=== PATIENT | female | born 1965 | race Caucasian/White ===

== ENCOUNTER 2017-01-25 11:26 | Day surgery (SDC) | payer OTHER ==
[~2017-01-25] VITALS: Ht 165.1 cm; Wt 90.7 kg
[2017-01-25] MEDS ORDERED: LIDOCAINE 2% INJ 100 MG/5 ML SDV (FOR ANES.) As Ordered ONE (12:04)
[2017-01-25] MEDS ORDERED: PROPOFOL 200 MG/20 ML VIAL As Ordered ONE (12:04)
[2017-01-25] MEDS ORDERED: NS 1,000 ML IV ONE (13:00)
--- NOTE | 2017-01-25 13:35 | ROOR ---
Patient Name: Tiffanie Ortiz Procedure Date: 01/25/2017 12:59 PM Date of : 1965 Age: 51 Room: [facility] Gender: Female Note Status: Finalized Procedure: Colonoscopy Indications: Screening for colorectal malignant neoplasm Providers: Sanya ARITA MD Referring MD: Antoni THOMPSON MD Requesting Provider: Medicines: Monitored Anesthesia Care Complications: No immediate complications. Procedure: Pre-Anesthesia Assessment: - The heart rate, respiratory rate, oxygen saturations, blood pressure, adequacy of pulmonary ventilation, and response to care were monitored throughout the procedure. The Colonoscope was introduced through the anus and advanced to the cecum, identified by appendiceal orifice and ileocecal valve. The colonoscopy was performed without difficulty. The patient tolerated the procedure well. The quality of the bowel preparation was good. Findings: The perianal and digital rectal examinations were normal. (Exam: Complete, Prep: Good or Excellent.) A 4 mm polyp was found in the proximal ascending colon. The polyp was sessile. The polyp was removed with a cold snare. Resection and retrieval were complete. Two semi-pedunculated polyps were found in the proximal sigmoid colon and at 50 cm proximal to the anus. The polyps were 4 to 10 mm in size. These polyps were removed with a hot snare. Resection and retrieval were complete. Area was successfully injected with 3 mL Spot (carbon black) for tattooing. To prevent bleeding after the polypectomy, two hemostatic clips were successfully placed (MR conditional). There was no bleeding at the end of the procedure. Two sessile polyps were found in the mid sigmoid colon. The polyps were 4 to 5 mm in size. These polyps were removed with a cold snare. Resection and retrieval were complete. Mild diverticulosis and small internal hemorrhoids. The exam was otherwise without abnormality on direct and retroflexion views. Impression: - (Exam: Complete, Prep: Good or Excellent.) - One 4 mm polyp in the proximal ascending colon, removed with a cold snare. Resected and retrieved. - Two 4 to 10 mm polyps in the proximal sigmoid colon and at 50 cm proximal to the anus, removed with a hot snare. Resected and retrieved. Injected. Clips (MR conditional) were placed. - Two 4 to 5 mm polyps in the mid sigmoid colon, removed with a cold snare. Resected and retrieved. - Mild diverticulosis and small internal hemorrhoids. - The examination was otherwise normal on direct and retroflexion views. Recommendation: - Telephone endoscopist for pathology results in 2 weeks. - If the pathology report reveals adenomatous tissue, then repeat the colonoscopy for surveillance in 3 years. Sanya Arita MD Sanya ARITA MD 01/25/2017 1:35:32 PM This report has been signed electronically. Number of Addenda: 0 Note Initiated On: 01/25/2017 12:59 PM Estimated Blood Loss: Estimated blood loss: none.
[2017-01-25 13:55] VITALS: BP 151/88
== END 2017-01-25 13:56 | disposition home or self-care (01) ==
LOC: M OPP 11:26
PROVIDERS: ATTEND Internal Medicine Gastroenterology
DX: Z12.11 Encounter for screening for malignant neoplasm of colon (principal); D12.2 Benign neoplasm of ascending colon; D12.5 Benign neoplasm of sigmoid colon; K57.30 Diverticulosis of large intestine without perforation or abscess without bleeding; K64.8 Other hemorrhoids; I10 Essential (primary) hypertension; K21.9 Gastro-esophageal reflux disease without esophagitis; E04.9 Nontoxic goiter, unspecified; Z78.0 Asymptomatic menopausal state

== ENCOUNTER → 2017-04-03 | Outpatient (REF) | payer OTHER ==
[2017-04-03 15:30] LABS: ALBUMIN/GLOBULIN RATIO 1.03 (1.00-1.93); ALKALINE PHOSPHATASE 76 U/L (45-117); ALT/SGPT 39 U/L (12-78); ANION GAP 9 MEQ/L (8-16); AST/SGOT 30 U/L (7-37); BILIRUBIN,TOTAL 0.5 MG/DL (0.2-1.0); BLOOD UREA NITROGEN 19 MG/DL (7-18); CARBON DIOXIDE LEVEL 25 MEQ/L (21-32); CHLORIDE LEVEL 107 MEQ/L (98-107); CHOLESTEROL LEVEL 223 MG/DL (<200); CREATININE FOR GFR 0.89 MG/DL (0.55-1.30); GLOMERULAR FILTRATION RATE > 60.0 (>51); GLUCOSE, FASTING 86 MG/DL (70-100); HDL CHOLESTEROL 50 MG/DL (>40); LDL CHOLESTEROL 149.6 MG/DL (<100); NON-HDL-C 173 MG/DL; SODIUM LEVEL 141 MEQ/L (136-145); TOTAL PROTEIN 7.9 GM/DL (6.4-8.2); TRIGLYCERIDES LEVEL 117 MG/DL (<150)
== END ==
LOC: M LAB REF 13:11
DX: R03.0 Elevated blood-pressure reading, without diagnosis of hypertension (principal)
CPT/HCPCS: 84443

== ENCOUNTER → 2017-05-16 | Outpatient (REF) | payer OTHER, MEDICAID ==
[2017-05-21 14:18] LABS: HPV HYBRID CAPTURE II Negative (Negative)
== END ==
LOC: M LAB REF 17:49
DX: Z01.419 Encounter for gynecological examination (general) (routine) without abnormal findings (principal); Z11.51 Encounter for screening for human papillomavirus (HPV)
CPT/HCPCS: 88142

== ENCOUNTER → 2017-06-10 | Outpatient (CLI) | payer OTHER, MEDICAID | LOC: M RAD 11:14 | DX: Z12.31 Encounter for screening mammogram for malignant neoplasm of breast (principal); Z78.0 Asymptomatic menopausal state | CPT/HCPCS: 77067 ==

== ENCOUNTER → 2019-03-13 | Outpatient (REF) | payer OTHER ==
[2019-03-13 13:29] LABS: BASO % 0.5 % (0.0-1.0); EOS % 0.5 % (0.0-3.0); HEMATOCRIT 42.4 % (36.0-47.0); HEMOGLOBIN 13.3 g/dl (12.0-15.5); LYMPH # 1.4 10^3/uL (1.5-5.0); LYMPH % 35.7 % (24.0-44.0); MEAN CORPUSCULAR HEMOGLOBIN 30.4 pg (27.0-33.0); MEAN CORPUSCULAR HGB CONC 31.4 g/dl (32.0-36.5); MONO # 0.3 10^3/uL (0.0-0.8); MONO % 7.5 % (0.0-5.0); NEUTROPHILS # 2.2 10^3/uL (1.5-8.5); NEUTROPHILS % 55.5 % (36.0-66.0); PLATELET COUNT, AUTOMATED 140 10^3/uL (150-450); RED BLOOD COUNT 4.37 10^6/uL (4.00-5.40)
[2019-03-13 14:01] LABS: ALBUMIN 4.1 GM/DL (3.2-5.2); ALT/SGPT 39 U/L (12-78); BILIRUBIN,TOTAL 0.3 MG/DL (0.2-1.0); BLOOD UREA NITROGEN 15 MG/DL (7-18); CALCIUM LEVEL 9.4 MG/DL (8.5-10.1); CARBON DIOXIDE LEVEL 27 MEQ/L (21-32); CHLORIDE LEVEL 107 MEQ/L (98-107); CHOLESTEROL LEVEL 235 MG/DL (<200); CHOLESTEROL RISK RATIO 4.795 (<5); CREATININE FOR GFR 0.88 MG/DL (0.55-1.30); FREE T4 1.09 NG/DL (0.76-1.46); GLOMERULAR FILTRATION RATE > 60.0 (>51); GLUCOSE, FASTING 87 MG/DL (70-100); HDL CHOLESTEROL 49 MG/DL (>40); LDL CHOLESTEROL 163 MG/DL (<100); NON-HDL-C 186 MG/DL; POTASSIUM SERUM 4.1 MEQ/L (3.5-5.1); SODIUM LEVEL 141 MEQ/L (136-145); TOTAL PROTEIN 7.9 GM/DL (6.4-8.2); TRIGLYCERIDES LEVEL 114 MG/DL (<150)
[2019-03-13 14:02] LABS: TOTAL 25(OH) VITAMIN D 26.4 NG/ML (30.0-100.0)
== END ==
LOC: M LAB REF 12:15
PROVIDERS: ATTEND Physician Assistant
DX: Z00.00 Encounter for general adult medical examination without abnormal findings (principal); Z68.37 Body mass index [BMI] 37.0-37.9, adult; E66.09 Other obesity due to excess calories; E78.00 Pure hypercholesterolemia, unspecified

== ENCOUNTER → 2019-04-09 | Outpatient (CLI) | payer MEDICAID, OTHER ==
--- NOTE | 2019-04-09 15:38 | REPMRS ---
Patient History The patient states she has not had a clinical breast exam in over a year. No known family history of cancer. Digital Woman Screen Mammo: April 09, 2019 - Exam #: [id number] Bilateral CC and MLO view(s) were taken. Technologist: Sendy Patiño, Technologist Prior study comparison: June 10, 2017, bilateral digital mammo screening bilat, performed at [facility]. FINDINGS: There are scattered fibroglandular densities. There has been no change in the appearance of the mammogram from the prior studies. There is a mild amount of scattered fibroglandular density which is fairly symmetric. There is no interval development of dominant mass, architectural distortion, or grouped microcalcification suggestive of malignancy. 3-D tomosynthesis shows no additional findings. Assessment: BI-RADS/ACR category 1 mammogram. Negative Mammogram. Recommendation Routine screening mammogram of both breasts in 1 year (for women over age 40). This patient's Lifetime Breast Cancer Risk is estimated at 8.3 %. This mammogram was interpreted with the aid of an FDA-approved computer-aided dectection system. Electronically Signed By: Du Green MD 04/09/19 [id number]
== END ==
LOC: M WHC 14:42
PROVIDERS: ATTEND Physician Assistant
DX: Z12.31 Encounter for screening mammogram for malignant neoplasm of breast (principal)

== ENCOUNTER → 2020-04-07 | Outpatient (CLI) | payer MEDICAID | LOC: M LABSMTC 10:07 | PROVIDERS: ATTEND Anesthesiology | DX: Z01.812 Encounter for preprocedural laboratory examination (principal); Z20.822 Contact with and (suspected) exposure to COVID-19 ==

== ENCOUNTER 2020-04-12 12:48 | Day surgery (SDC) | payer OTHER ==
[~2020-04-12] VITALS: Ht 167.6 cm; Wt 95.3 kg
--- OUTSIDE RECORDS SUMMARY | 2020-04-12 12:53 | CCD | Continuity of Care Document ---
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 AUTM [phone] Problems Description No Active Problems Social History Type Date Description Comments Sex Unknown ETOH Use Denies alcohol use Tobacco Use Start: Unknown Non Smoker Allergies, Adverse Reactions, Alerts Description No Known Drug Allergies Medications Active Medications SIG Qnty Indications Ordering Provide r Date Miralax 17GM/Scoop Powder use as instructed by doctor for bowel prep 510gm Z12.11 Sanya Arita MD 01/29/2020 Milk Of Magnesia 1200mg/15ML Suspe nsion take 45 milliliters by mouth as directed on colonoscopy prep sheet. Z12.11 Sanya Arita MD 01/29/2020 History Medications No Active Medications Unknown 12/2019 - 01/29/2020 Immunizations Description No Information Available Vital Signs Date Vital Result Comment 01/29/2020 11:21am BP Systolic 144 mmHg BP Diastolic 84 mmHg Height 65 inches 5'5" Weight 219.00 lb BMI (Body Mass Index) 36.4 kg/m2 [place] Body Weight 125 lb Weight 99.338 kg BSA (Body Surface Area) 2.06 m2 12/10/2016 12:56pm BP Systolic 148 mmHg BP Diastolic 88 mmHg Height 65 inches 5'5" Weight 222.00 lb BMI (Body Mass Index) 36.9 kg/m2 [place] Body Weight 125 lb Weight 100.699 kg BSA (Body Surface Area) 2.07 m2 Results Description No Information Available Procedures Description No Information Available Medical Devices Description No Information Available Encounters Description No Information Available Assessments Date Code Description Provider 01/29/2020 Z12.11 Encounter for screening for libyb gnant neoplasm of colon Jana Dagoberto MAITE Malcolm 01/29/2020 Z86.010 Personal history of colonic poly ps MAITE Colon Plan of Treatment 01/29/2020 - Jana Dagoberto MAITE Malcolm* Z12.11 Encounter for screening for malignant neoplasm of colon * Z86.010 Personal history of colonic polyps * * New Medication:* Miralax 17 GM/Scoop * Milk Of Magnesia 1200 mg/15ML * New Orders:* Colonoscopy, Ordered: 01/29/20 * Comments:* Will arrange for colonoscopy. Reviewed risks and benefits of the procedure, as well as other options, with the patient. Bowel prep procedure was discussed with patient, as well as risks and side effects associated with the bowel prep. Patient verbalized understanding of all of the above and is in agreement to proceed. Patient will seek medical attention for any acute changes. Will monitor. * Follow up:* As scheduled, sooner if needed. Functional Status Description No Information Available Mental Status Description No Information Available Referrals Description No Information Available
--- OUTSIDE RECORDS SUMMARY | 2020-04-12 12:53 | CCD ---
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 Name Role Phone Shelley Milan MD Unavailable Unavailable Shelley Milan MD Unavailable Unavailable Shelley Milan MD Unavailable Unavailable Shelley Milan MD Unavailable Unavailable Shelley Milan MD Unavailable Unavailable Shelley Milan MD Unavailable Unavailable Shelley Milan MD Unavailable Unavailable Shelley Milan MD Unavailable Unavailable Shelley Milan MD Unavailable Unavailable Shelley Milan MD Unavailable Unavailable Shelley Milan MD Unavailable Unavailable Shelley Milan MD Unavailable Unavailable Shelley Milan MD Unavailable Unavailable Shelley Milan MD Unavailable Unavailable Shelley Milan MD Unavailable Unavailable Shelley Milan MD Unavailable Unavailable Shelley Milan MD Unavailable Unavailable Shelley Milan MD Unavailable Unavailable Shelley Milan MD Unavailable Unavailable Shelley Milan MD Unavailable Unavailable Shelley Milan MD Unavailable Unavailable Shelley Milan MD Unavailable Unavailable Shelley Milan MD Unavailable Unavailable Shelley Milan MD Unavailable Unavailable Shelley Milan MD Unavailable Unavailable Shelley Milan MD Unavailable Unavailable Shelley Milan MD Unavailable Unavailable Shelley Milan MD Unavailable Unavailable Shelley Milan MD Unavailable Unavailable Shelley Milan MD Unavailable Unavailable Shelley Milan MD Unavailable Unavailable Shelley Milan MD Unavailable Unavailable Shelley Milan MD Unavailable Unavailable Shelley Milan MD Unavailable Unavailable Shelley Milan MD Unavailable Unavailable Shelley Milan MD Unavailable Unavailable Shelley Milan MD Unavailable Unavailable Shelley Milan MD Unavailable Unavailable Shelley Milan MD Unavailable Unavailable Shelley Milan MD Unavailable Unavailable Shelley Milan MD Unavailable Unavailable Shelley Milan MD Unavailable Unavailable Shelley Milan MD Unavailable Unavailable Shelley Milan MD Unavailable Unavailable Shelley Milan MD Unavailable Unavailable Milan, Shelley Corrales MD Unavailable Unavailable Milan, D Antoni MD Unavailable Unavailable Milan, D Antoni MD Unavailable Unavailable Milan, D Antoni MD Unavailable Unavailable Milan, D Antoni MD Unavailable Unavailable Milan, D Antoni MD Unavailable Unavailable Milan, D Antoni MD Unavailable Unavailable Milan, D Antoni MD Unavailable Unavailable Milan, D Antoni MD Unavailable Unavailable Milan, D Antoni MD Unavailable Unavailable Milan, D Antoni MD Unavailable Unavailable Milan, D Antoni MD Unavailable Unavailable Milan, D Antoni MD Unavailable Unavailable Milan, D Antoni MD Unavailable Unavailable Milan, D Antoni MD Unavailable Unavailable Milan, D Antoni MD Unavailable Unavailable Milan, D Antoni MD Unavailable Unavailable Milan, D Antoni MD Unavailable Unavailable Milan, D Antoni MD Unavailable Unavailable Milan, D Antoni MD Unavailable Unavailable Milan, D Antoni MD Unavailable Unavailable Milan, D Antoni MD Unavailable Unavailable Milan, D Antoni MD Unavailable Unavailable Milan, D Antoni MD Unavailable Unavailable Milan, D Antoni MD Unavailable Unavailable Milan, D Antoni MD Unavailable Unavailable Milan, D Antoni MD Unavailable Unavailable Milan, D Antoni MD Unavailable Unavailable Milan, D Antoni MD Unavailable Unavailable Milan, D Antoni MD Unavailable Unavailable Milan, D Antoni MD Unavailable Unavailable Milan, D Antoni MD Unavailable Unavailable Milan, D Antoni MD Unavailable Unavailable Milan, D Antoni MD Unavailable Unavailable Milan, D Antoni MD Unavailable Unavailable Milan, D Antoni MD Unavailable Unavailable Milan, D Antoni MD Unavailable Unavailable Milan, D Antoni MD Unavailable Unavailable Milan, D Antoni MD Unavailable Unavailable Milan, D Antoni MD Unavailable Unavailable Milan, D Antoni MD Unavailable Unavailable Milan, D Antoni MD Unavailable Unavailable Milan, D Antoni MD Unavailable Unavailable Milan, D Antoni MD Unavailable Unavailable Re-disclosure Warning The records that you are about to access may contain information from federally-assisted alcohol or drug abuse programs. If such information is present, then the following federally mandated warning applies: This information has been disclosed to you from records protected by federal confidentiality rules (42 CFR part 2). The federal rules prohibit you from making any further disclosure of this information unless further disclosure is expressly permitted by the written consent of the person to whom it pertains or as otherwise permitted by 42 CFR part 2. A general authorization for the release of medical or other information is NOT sufficient for this purpose. The Federal rules restrict any use of the information to criminally investigate or prosecute any alcohol or drug abuse patient.The records that you are about to access may contain highly sensitive health information, the redisclosure of which is protected by Article 27-F of the [place] State Public Health law. If you continue you may have access to information: Regarding HIV / AIDS; Provided by facilities licensed or operated by the [facility] Office of Mental Health; or Provided by the [facility] Office for People With Developmental Disabilities. If such information is present, then the following [facility] mandated warning applies: This information has been disclosed to you from confidential records which are protected by state law. State law prohibits you from making any further disclosure of this information without the specific written consent of the person to whom it pertains, or as otherwise permitted by law. Any unauthorized further disclosure in violation of state law may result in a fine or long term sentence or both. A general authorization for the release of medical or other information is NOT sufficient authorization for further disc losure. Family History Family Member Name Family Member Gender Family Member Status Date o f Status Description Data Source(s) Unknown Unknown Problem [facility] ([facility], ) Encounters Encounter Providers Location Date Indications Data Source(s ) Outpatient 06/08/2019 02:21:00 PM EDT [facility] Radiology Imaging Outpatient 04/16/2019 07:27:00 PM [facility] Imaging Outpatient Attender: Antoni Milan MD 04/15/2019 01:48:02 PM [facility] Outpatient Attender: Antoni Milan MD FP 04/03/2019 08:01:57 PM [facility] Outpatient Attender: Antoni Milan MD FP 03/26/2019 10:14:45 AM [facility] Outpatient Attender: Antoni Milan MD FP 03/20/2019 09:13:00 AM [facility] Outpatient Attender: Antoni Milan MD FP 03/18/2019 03:58:01 PM [facility] Outpatient Attender: Antoni Milan MD FP 03/16/2019 08:35:02 AM [facility] Outpatient Attender: Antoni Milan MD FP 03/16/2019 08:33:04 AM [facility] Outpatient Attender: Antoni Milan MD FP 03/16/2019 08:32:02 AM [facility] Outpatient Attender: Antoni Milan MD FP 03/16/2019 08:32:02 AM [facility] Outpatient Attender: Antoni Milan MD FP 03/16/2019 08:14:01 AM [facility] Outpatient Attender: Antoni Milan MD FP 03/13/2019 11:34:01 AM [facility] Outpatient Attender: Antoni Milan MD FP 03/13/2019 11:33:01 AM [facility] Outpatient Attender: Antoni Milan MD FP 03/13/2019 11:32:00 AM [facility] Outpatient Attender: Antoni Milan MD FP 03/13/2019 09:36:26 AM [facility] Outpatient Attender: Antoni Milan MD FP 03/13/2019 09:29:44 AM [facility] Outpatient Attender: Antoni Milan MD FP 03/11/2019 01:12:00 PM [facility] Outpatient Attender: Antoni Milan MD FP 03/11/2019 01:11:01 PM [facility] Outpatient Attender: Antoni Milan MD FP 02/23/2019 10:09:01 AM [facility] Outpatient Attender: Antoni Milan MD FP 02/19/2019 10:04:00 AM [facility] Outpatient Attender: Antoni Milan MD 02/11/2019 09:01:07 PM [facility] Medications Medication Brand Name Start Date Product Form Dose Route Admi nistrative Instructions Pharmacy Instructions Status Indications Reaction Description Data Source(s) Magnesium Hydroxide 80 MG/ML Oral Suspension Milk Of Magnesi a 01/29/2020 12:00:00 AM EST ORAL active M [facility] ([facility], ) POLYETHYLENE GLYCOL 3350 142 MG/ML Oral Solution [Miralax] M iralax 01/29/2020 12:00:00 AM EST active [facility] ([facility], ) No Active Medications 01/29/2020 12:00:00 AM EST completed [facility] ([facility], ) Insurance Providers Payer name Policy type / Coverage type Policy ID Covered libertarian ID Covered libertarian's relationship to atkins Policy Atkins Plan Information [facility] [facility] [id number] SP [id number] EMEDNY [id number] SP [id number] MEDICAID M [id number] S [id number] MEDICAID [id number] SP [id number] [facility] O [id number] S [id number] [facility] [id number] SP [id number] Medicaid P [id number] S [id number] [facility] Care [facility] P [id number] S [id number] Medicaid S [id number] S [id number] [facility] P [id number] S [id number] Managed Care - [facility] P [id number] S [id number] Medicaid S [id number] S [id number] [facility] Health Maintenance Organization (HMO) [id number] Self [id number] Problems, Conditions, and Diagnoses Code Display Name Description Problem Type Effective Dates Data Source(s) V85.37 BMI 37.0-37.9 BMI 37.0-37.9 03/13/2019 08:52:09 AM EST [facility] 278.00 Obesity Obesity 03/13/2019 08:52:09 AM ES T [facility] [id number] Pure hypercholesterolemia, unspecified P ure hypercholesterolemia, unspecified 03/13/2019 08:52:09 AM EST [facility] V70.0 Encounter for general adult medical exam ination without abnormal findings Encounter for general adult medical examination without abnormal findings 03/13/2019 08:52:09 AM [facility] Results ID Date Data Source [id number] 04/07/2020 11:00:00 AM EST [facility] Name Value Range Interpretation Code Description Data Jing rce(s) Supporting Document(s) SARS coronavirus 2 RNA Not Detected [facility] [place] This lab was ordered by [facility] and reported by [facility]. ID Date Data Source [id number] 03/13/2019 09:05:00 AM EST [facility] Name Value Range Interpretation Code Description Data Jing rce(s) Supporting Document(s) HCT 42.4 % 36.0-47.0 [facility] HGB 13.3 g/dL 12.0-15.5 [facility] MCH 31.4 G/DL pg 32.0-36.5 [facility] MCHC 30.4 PG % 27.0-33.0 [facility] PLATELETS 140 10 10*3/mm3 150-450 L [facility] RBC 4.37 10 10*6/mm3 4.00-5.40 [facility] RDW 13.2 % 11.5-14.5 [facility] WBC TOTAL 4.0 4.0-10.0 [facility] ID Date Data Source [id number] 03/13/2019 08:22:29 AM [facility] Measurements & CalculationsHeight: 65 inches (5 ft. 5 in.) 165.10 cm Weight: 222 pounds 100.91 kg Body Mass Index (BMI): 37.08BMI Interpretation: ObeseBody Surface Area (BSA): 2.07Weight Management Education Done (Nutrition/Physical Activity)Vital SignsTemperature: 97.8F oral Pulse Rate: 63 beats/minuteRespiratory Rate: 17 respirations/minuteBlood Pressure: 139/84 left arm sitting automaticO2 Saturation: 97% room airVital Signs performed by: Genevivee Reyes LPN, March 13, 2019 8:28 AMVital Signs performed by: Franck WILSON, March 13, 2019 8:29 AMInitial Intake Information from: patientRoom #: 14Infectious Disease- Travel Have you or your sexual partner travelled outside of the country recently? NoSmoking, Tobacco or Smoke Exposure StatusSmoke Status: never smokerTobacco Use: NoPassive Smoke Exposure: NoMenstrual HistoryAge at Menopause: 41Any possibility of ? NoHealthcare HistorySince your last office visit...Have you been admitted to the hospital? NoHave you been to an emergency room (ER) or urgent care clinic? NoHave you seen another healthcare provider? NoHave you seen a dentist? NoIntake performed by: Genevieve Reyes LPN, March 13, 2019 8:24 AMRate Your HealthIn general, would you say your health is? GoodPain AssessmentAre you currently having any pain which... You would like your provider to address? No Affects your activity level? NoDepression Screening - PHQ-2Over the last two weeks, have you... Had little interest or pleasure in doing things? Not at all Been feeling down, depressed, or hopeless? Not at all PHQ-2 Score: 0Anxiety Screening - KEVIN-2Over the last two weeks, have you been... Feeling nervous, anxious, or on edge? Not at all Unable to stop or control worrying? Not at all KEVIN-2 Score: 0Infectious Disease- Travel Cont. Any possibility of ? NoPRAPARE Sociodemographic Characteristics Race: White Ethnicit y: Not or Preferred Language: EnglishFamily and Home Address: [address] [place] [address]. [address] [place] [address] What is your housing situation today? I have housing Are you worried about losing your housing? NoMoney and Resources What is the highest level of school that you have finished? some college Employed? 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 PT Insurance: MedicaidIn the past year, have you or any family members you live with been unable to get any of the following when it was really needed? Denies Insecurity: food, utilities, clothing, child care specialist, phone, legal services, otherIn the past year, have you had trouble affording costs associated with health insurance (such as deductibles, co-payments, etc.)? NoSocial and Emotional Health How often do you see or talk to people that you care about and feel close to? More than 5 times a week How stressed are you? A little bitAdditional Optional Domains In the past 3 months, have you spent more than 2 nights in a row in a long term, long term, fpc center or juvenile correctional facility? No Has lack of transportation kept you from medical appointments or from getting your medications? NoIn the past year, have you had trouble getting any of the following when it was really needed (check all that apply)?noneIn the past year, have you had trouble paying the costs associated with health care or medicine (such as co-payments, costs for services, prices of medicines)? NoHow confident are you that you can control and manage most of your health problems? Very confident Are you a refugee? Yes (Country of origin: [facility]) Do you feel physically and emotionally safe where you live? Yes In the past year, have you been afraid of a partner, ex- partner? NoScreening, Brief Intervention, & Referral to Treatment (SBIRT)Pre- Screening Questions How many times have you have 4 or more drinks in a day? 0How many times have you used an illegal drug or used a prescription medication for a non-medical reason? 0Performed by: Genevieve Reyes LPN, March 13, 2019 8:25 AMPatient History Medical History:No known medical historySurgical History:No known surgical historyFamily History:No known family historySocial/Personal History: Smoking Status: never smokerChief Complaintannual examHistory of Present Illness (HPI)53 yo female here for annuel PE and PPD test for work.Pt has no concerns at this time. Pt eats healthy diet and exercises routinely. Pt is due for a mammogram. HPI performed by: Franck WILSON, March 13, 2019 8:31 AMProblem ReviewProblem List was reviewed and/or updated during this visi t.Medication Reconciliation & ReviewMedication List was reviewed and/or updated during this visit, including review of any [id number] medications, herbal therapies, and/or supplements. Patient has no known medications.Allergy ReviewAllergy List was reviewed and/or updated during this visit. Patient has no known allergies.Adult Preventive CareProvider Calculated and Reviewed all Clinical Protocols for patient today. Labs/Meds/Other Counseling-Nutrition and Physical Activity:BMI Interpretation: Obese (03/13/2019) Counseling: Done (03/13/2019) Physical Activity: Done (03/13/2019)Review of Systems General: Denies loss of appetite, chills, dizziness, fatigue, fever, headache, feeling ill. Eyes: Denies blurring of vision, double vision. Ears/Nose/Throat: Denies earache, nasal congestion, sore throat, swollen glands. Cardiovascular: Denies chest pain, palpitations, feeling faint, peripheral edema, elevated blood pressure. Respiratory: Denies cough, shortness of breath, wheezing. Breast: Denies discoloration, tenderness, breast changes, breast lump, nipple discharge. Gastrointestinal: Denies nausea, vomiting, diarrhea, abdominal pain, blood in stool, black or tarry stools. Musculoskeletal: Denies joint pain, muscle aches. Skin: Denies rash, itching, suspicious lesions. Neurologic: Denies numbness/tingling, feeling faint. Psychiatric: Denies depression, anxiety, feeling stressed. Physical ExamGeneral Appearance: well nourished, well hydrated, no acute distressEyes, External: conjunctivae and lids normal, EOMIExternal Ears: normal, no lesions or deformitiesHearing: grossly intactOtoscopy: canals clear, tympanic membranes intact, no fluid, light reflex intact bilaterallyExternal Nose: normal, no lesions or deformitiesNasal: mucosa, septum, and turbinates normal, nares patentLips/Teeth/Gums: normal dentition, no gingival inflammation, no labial lesionsPharynx: tongue normal, posterior pharynx without erythema or exudate, no thrush/aphthous ulcerNeck: supple, no masses, trachea midline, full range of motion of neckThyroid: no nodules, masses, tenderness, or enlargementRespiratory, Auscultation: clear to auscultation bilaterally; no rales, rhonchi, or wheezesRespiratory, Effort: no intercostal retractions or use of accessory musclesCardiovascular, Auscultation: S1, S2 audible; no murmur, rub, or gallop; RRRPeripheral Circulation: no clubbing, cyanosis, edema, or varicositiesAbdomen: soft, non-tender, no masses, bowel sounds normalGait & Station: normalSkin, Inspection: no rashes, lesions, or ulcerationsOrientation: oriented to time, place, and personMood & Affect: no depression, anxiety, or agitationJudgment & Insight: intactTB Skin Test Screening InformationLarysa states she has never had tuberculosis.Tiffanie states she has never had positive TB skin test.PPD authorized due to above responses PPD given on: 03/13/2019 by Genevieve Reyes LPN Location given: left forearm Date vial opened: 03/04/2019 Lot number: [id number] Expiration date: 01/18/20 20PPD [id number] induration, read on 03/16/2019PPD ReferralsPPD [id number] 03/16/2019 read by MAITE Cheung; form completed, scanned into chart and provided original to patient.Rate Your HealthIn general, would you say your health is? GoodAssessment & Plan Problems:Added: Pure hypercholesterolemia, unspecified (YYY70-D73.00) Assessment: Instructions: Fasting labs have been ordered for you today. We will notify you of results.Obesity (ICD-278.00) (TZB71-V48.09) Assessment: Instructions: Recommend healthy lifestyle modification. Encourage portion control, healthy food choices, and increasing routine physical activity. Recommendation is for 150 minutes throughout the week of cardiovascular exercise.BMI 37.0-37.9 (ICD-V85.37) (JLB67-Z45.37) Assessment: Instructions: As above.Changed:From: Dx of Encounter for general adult medical examination with abnormal findings (ICD-V70.0) (ALJ17-N53.01) To: Encounter for general adult medical examination without abnormal findings (ICD10 -Z00.00)Assessed:Encounter for general adult medical examination without abnormal findings (WBJ90-M71.00) Assessment: Instructions: Recommend annual medical appointments. Recommend routine dental and vision care. Recommend influenza vaccines annually and tetanus boosters every 10 years. Return in 1 year for well woman exam with pap and mammogram. Colonoscopy due 01/2027.Screening for malignant neoplasm of breast (GOM35-F68.39) Assessment: Instructions: Mammogram ordered, you will be called with an appointment for this test.Tuberculosis screening (CQP72-E32.1) Assessment: Instructions: PPD placed today, given instructions on return for read.Patient Instructions/Care Plan: Encounter for general adult medical examination without abnormal findings: Recommend annual medical appointments. Recommend routine dental and vision care. Recommend influenza vaccines annually and tetanus boosters every 10 years. Return in 1 year for well woman exam with pap and mammogram. Colonoscopy due 01/2027.Pure hypercholesterolemia- unspecified: Fasting labs have been ordered for you today. We will notify you of results.Obesity: Recommend healthy lifestyle modification. Encourage portion co ntrol, healthy food choices, and increasing routine physical activity. Recommendation is for 150 minutes throughout the week of cardiovascular exercise.BMI 37.0-37.9: As above.Screening for malignant neoplasm of breast: Mammogram ordered, you will be called with an appointment for this test.Tuberculosis screening: PPD placed today, given instructions on return for read. Plan developed in collaboration with patient and/or familyAllergies:No Known Allergies (updated 03/13/2019) Orders:Mammography - Screening -bilateral (2-view study of each breast), including computer-aided detection (CAD) when performed [CPT-41786] 12968-Ilp Vst-Est Level I [CPT-29191] 81375 - Venipuncture [CPT-91838] COMP METABOLIC PANEL [CPT-70306] CBC W/DIFF [CPT-49870] LIPID PANEL [CPT-82274] TSH [CPT-32838] T-4 free [CPT-08541] Vitamin D 250H Unspecified [CPT-13110] PPD [CPT-16645] Preventive, Est, (40-64) [CPT- 30726] Follow-Up Return to clinic: in 1 year for preventive care visitAdditional Follow-Up: annual PEClinical Visit Summary CompletedLabs In-House Blood TestsDate/Time Collected: March 13, 2019 9:10 AMTest Result Reference Range Normal ValueComments: blood draw done in offcie done in the right ac tolerated well Cem Felipe CALABRESE, March 13, 2019 9:10 AM Name Value Range Interpretation Code Description Data Jing rce(s) Supporting Document(s) Procedure Vital Signs ID Date Data Source UNK Name Value Range Interpretation Code Description Data Source(s) Body surface area Derived from formula 2.06 m2 2.06 m2 [facility] ([facility]) Body weight 99.338 kg 99.338 kg [facility] ([facility]) [place] body weight 125 [lb_av] 125 [lb_av] MEDEN T ([facility]) Body mass index (BMI) [Ratio] 36.4 kg/m2 36.4 k g/m2 [facility] ([facility]) Body weight 219.00 [lb_av] 219.00 [lb_av] [facility] Body height 65 [in_i] 65 [in_i] [facility] ([facility]) 5'5" Diastolic blood pressure 84 mm[Hg] 84 mm[Hg] [facility] ([facility]) Systolic blood pressure 144 mm[Hg] 144 mm[Hg] Kristan DAILEY ([facility])
[2020-04-12] MEDS ORDERED: NS 1,000 ML IV ONE (14:15)
[2020-04-12] MEDS ORDERED: LIDOCAINE 2% 100MG/5ML SDV (FOR ANES.) As Ordered ONE (15:02)
[2020-04-12] MEDS ORDERED: propofoL 200 MG/20 ML VIAL As Ordered ONE (15:02)
--- NOTE | 2020-04-12 15:47 | ROOR ---
Patient Name: Tiffanie Ortiz Procedure Date: 04/12/2020 3:25 PM Date of : 1965 Age: 54 Room: [facility] Gender: Female Note Status: Finalized Procedure: Colonoscopy Indications: High risk colon cancer surveillance: Personal history of colonic polyps, Last colonoscopy: January 2017 Providers: Sanya ARITA MD Referring MD: Antoni THOMPSON MD Requesting Provider: Medicines: Monitored Anesthesia Care Complications: No immediate complications. Procedure: Pre-Anesthesia Assessment: - The heart rate, respiratory rate, oxygen saturations, blood pressure, adequacy of pulmonary ventilation, and response to care were monitored throughout the procedure. The Colonoscope was introduced through the anus and advanced to the terminal ileum, with identification of the appendiceal orifice and IC valve. The colonoscopy was performed without difficulty. The patient tolerated the procedure well. The quality of the bowel preparation was good. Findings: The perianal and digital rectal examinations were normal. Small Internal Hemorrhoids. The entire examined colon appeared normal on direct and retroflexion views. Impression: - Small Internal Hemorrhoids. - A tattoo is seen at 50 cm from verge. A polypectomy scar is seen. There is no residual polyp seen. - The entire examined colon is normal on direct and retroflexion views. - No specimens collected. Recommendation: - Repeat colonoscopy in 5 years for surveillance. Procedure Code(s): --- Professional --- 58510, Colonoscopy, flexible; diagnostic, including collection of specimen(s) by brushing or washing, when performed (separate procedure) Diagnosis Code(s): --- Professional --- Z86.010, Personal history of colonic polyps CPT copyright 2019 [employer]. All rights reserved. The codes documented in this report are preliminary and upon candy cooker helper review may be revised to meet current compliance requirements. Sanya Arita MD Sanya ARITA MD 04/12/2020 3:47:29 PM Electronically signed by Sanya ARITA MD Number of Addenda: 0 Note Initiated On: 04/12/2020 3:25 PM Estimated Blood Loss: Estimated blood loss: none.
[2020-04-12 16:11] VITALS: BP 137/71
== END 2020-04-12 16:14 | disposition home or self-care (01) ==
LOC: M OPP 12:48
PROVIDERS: ATTEND Internal Medicine Gastroenterology
DX: Z12.11 Encounter for screening for malignant neoplasm of colon (principal); Z86.010 Personal history of colon polyps; K64.8 Other hemorrhoids; R12 Heartburn; Z87.891 Personal history of nicotine dependence

== ENCOUNTER → 2020-05-16 | Outpatient (REF) | payer OTHER ==
[2020-05-18 10:11] LABS: ALBUMIN 3.9 GM/DL (3.2-5.2); ALT/SGPT 36 U/L (12-78); BILIRUBIN,TOTAL 0.2 MG/DL (0.2-1.0); BLOOD UREA NITROGEN 19 MG/DL (7-18); CALCIUM LEVEL 8.8 MG/DL (8.5-10.1); CARBON DIOXIDE LEVEL 26 MEQ/L (21-32); CHLORIDE LEVEL 111 MEQ/L (98-107); CHOLESTEROL LEVEL 227 MG/DL (<200); CHOLESTEROL RISK RATIO 5.279 (<5); CREATININE FOR GFR 0.89 MG/DL (0.55-1.30); GLOMERULAR FILTRATION RATE > 60.0 (>51); GLUCOSE, FASTING 110 MG/DL (70-100); HDL CHOLESTEROL 43 MG/DL (>40); LDL CHOLESTEROL 162 MG/DL (<100); NON-HDL-C 184 MG/DL; POTASSIUM SERUM 5.1 MEQ/L (3.5-5.1); SODIUM LEVEL 142 MEQ/L (136-145); TOTAL PROTEIN 7.3 GM/DL (6.4-8.2); TRIGLYCERIDES LEVEL 110 MG/DL (<150)
== END ==
LOC: M LAB REF 09:18
PROVIDERS: ATTEND Physician Assistant
DX: R03.0 Elevated blood-pressure reading, without diagnosis of hypertension (principal); E78.5 Hyperlipidemia, unspecified

== ENCOUNTER → 2020-05-31 | Outpatient (CLI) | payer OTHER ==
--- NOTE | 2020-05-31 14:43 | REPMRS ---
Patient History The patient states she has not had a clinical breast exam in over a year. No known family history of cancer. 3D TOMOSYNTHESIS WAS PERFORMED. [facility] lifetime risk for breast cancer [facility] 8.1%. Volpara breast density b. Digital Woman Screen Mammo: May 31, 2020 - Exam #: [id number] Bilateral CC and MLO view(s) were taken. Technologist: Angelica Webster, Technologist Prior study comparison: April 09, 2019, bilateral digital woman screen mammo performed at [facility]. June 10, 2017, bilateral digital mammo screening bilat, performed at [facility]. FINDINGS: There are scattered fibroglandular densities. There has been no change in the appearance of the mammogram from the prior studies. There is a mild amount of residual fibroglandular tissue which is fairly symmetric. There is no interval development of dominant mass, architectural distortion, or clustered microcalcification suggestive of malignancy. Assessment: BI-RADS/ACR category 1 mammogram. Negative Mammogram. Recommendation Routine screening mammogram in 1 year (for women over age 40). This mammogram was interpreted with the aid of an FDA-approved computer-aided dectection system. Electronically Signed By: Karthikeyan Ware MD 05/31/20 [id number]
== END ==
LOC: M WHC 13:24
PROVIDERS: ATTEND Physician Assistant
DX: Z12.31 Encounter for screening mammogram for malignant neoplasm of breast (principal)

== ENCOUNTER → 2021-11-28 | Outpatient (CLI) | payer OTHER | LOC: M WHC 08:21 | PROVIDERS: ATTEND Physician Assistant | DX: Z12.31 Encounter for screening mammogram for malignant neoplasm of breast (principal) ==

== ENCOUNTER → 2022-02-08 | Outpatient (REF) | payer OTHER ==
[2022-02-08 18:12] LABS: BASO % 0.5 % (0.0-1.0); EOS # 0.1 10^3/uL (0.0-0.5); EOS % 1.7 % (0.0-3.0); HEMATOCRIT 39.7 % (36.0-47.0); HEMOGLOBIN 12.4 g/dl (12.0-15.5); LYMPH # 2.3 10^3/uL (1.5-5.0); LYMPH % 53.8 % (24.0-44.0); MEAN CORPUSCULAR HEMOGLOBIN 30.2 pg (27.0-33.0); MEAN CORPUSCULAR HGB CONC 31.2 g/dl (32.0-36.5); MEAN CORPUSCULAR VOLUME 96.8 fl (80.0-96.0); MONO # 0.3 10^3/uL (0.0-0.8); MONO % 7.6 % (2.0-8.0); NEUTROPHILS # 1.5 10^3/uL (1.5-8.5); NEUTROPHILS % 36.2 % (36.0-66.0); PLATELET COUNT, AUTOMATED 125 10^3/uL (150-450); WHITE BLOOD COUNT 4.2 10^3/uL (4.0-10.0)
[2022-02-08 18:17] LABS: ALBUMIN 3.8 G/DL (3.2-5.2); ALKALINE PHOSPHATASE 83 U/L (46-116); ALT/SGPT 33 U/L (7.0-40); AST/SGOT 39 U/L (<34); BILIRUBIN,TOTAL 0.4 MG/DL (0.3-1.2); BLOOD UREA NITROGEN 17 MG/DL (9-23); CALCIUM LEVEL 9.1 MG/DL (8.5-10.1); CARBON DIOXIDE LEVEL 24 MMOL/L (20-31); CHLORIDE LEVEL 107 MMOL/L (98-107); CHOLESTEROL LEVEL 217 MG/DL (<200); CHOLESTEROL RISK RATIO 4.65 (<5); CREATININE FOR GFR 0.78 MG/DL (0.55-1.30); GLOMERULAR FILTRATION RATE > 60.0 (>51); GLUCOSE, FASTING 86 MG/DL (60-100); HDL CHOLESTEROL 46.6 MG/DL (>40); LDL CHOLESTEROL 150.6 MG/DL (<100); NON-HDL-C 170 MG/DL; POTASSIUM SERUM 3.8 MMOL/L (3.5-5.1); SODIUM LEVEL 143 MMOL/L (136-145); TRIGLYCERIDES LEVEL 99 MG/DL (<150)
== END ==
LOC: M LAB REF 16:49
PROVIDERS: ATTEND Physician Assistant
DX: D69.6 Thrombocytopenia, unspecified (principal); E78.00 Pure hypercholesterolemia, unspecified; I10 Essential (primary) hypertension

== ENCOUNTER → 2022-03-29 | Outpatient (REF) | payer OTHER ==
[2022-03-29 16:48] LABS: BASO % 0.6 % (0.0-1.0); EOS # 0.1 10^3/uL (0.0-0.5); EOS % 1.4 % (0.0-3.0); HEMATOCRIT 39.6 % (36.0-47.0); HEMOGLOBIN 12.8 g/dl (12.0-15.5); LYMPH # 1.8 10^3/uL (1.5-5.0); LYMPH % 51.3 % (24.0-44.0); MEAN CORPUSCULAR HEMOGLOBIN 30.3 pg (27.0-33.0); MEAN CORPUSCULAR HGB CONC 32.3 g/dl (32.0-36.5); MEAN CORPUSCULAR VOLUME 93.8 fl (80.0-96.0); MONO # 0.3 10^3/uL (0.0-0.8); NEUTROPHILS # 1.3 10^3/uL (1.5-8.5); NEUTROPHILS % 37.4 % (36.0-66.0); PLATELET COUNT, AUTOMATED 122 10^3/uL (150-450); RED BLOOD COUNT 4.22 10^6/uL (4.00-5.40); WHITE BLOOD COUNT 3.6 10^3/uL (4.0-10.0)
[2022-03-29 17:23] LABS: ALBUMIN 3.8 G/DL (3.2-5.2); ALKALINE PHOSPHATASE 81 U/L (46-116); ALT/SGPT 49 U/L (7.0-40); AST/SGOT 45 U/L (<34); BILIRUBIN,TOTAL 0.5 MG/DL (0.3-1.2); BLOOD UREA NITROGEN 21 MG/DL (9-23); CALCIUM LEVEL 9.1 MG/DL (8.5-10.1); CARBON DIOXIDE LEVEL 26 MMOL/L (20-31); CHLORIDE LEVEL 104 MMOL/L (98-107); CHOLESTEROL LEVEL 247 MG/DL (<200); CHOLESTEROL RISK RATIO 4.76 (<5); CREATININE FOR GFR 0.81 MG/DL (0.55-1.30); GLOMERULAR FILTRATION RATE > 60.0 (>51); GLUCOSE, FASTING 82 MG/DL (60-100); HDL CHOLESTEROL 51.8 MG/DL (>40); NON-HDL-C 195 MG/DL; POTASSIUM SERUM 4.5 MMOL/L (3.5-5.1); SODIUM LEVEL 138 MMOL/L (136-145); TRIGLYCERIDES LEVEL 91 MG/DL (<150)
== END ==
LOC: M LAB REF 16:12
PROVIDERS: ATTEND Physician Assistant
DX: D69.6 Thrombocytopenia, unspecified (principal); E78.00 Pure hypercholesterolemia, unspecified; I10 Essential (primary) hypertension

== ENCOUNTER → 2022-07-23 | Outpatient (REF) | payer OTHER ==
[2022-07-23 18:10] LABS: BASO % 0.9 % (0.0-1.0); EOS # 0.1 10^3/uL (0.0-0.5); EOS % 1.5 % (0.0-3.0); HEMATOCRIT 39.9 % (36.0-47.0); HEMOGLOBIN 13.1 g/dl (12.0-15.5); LYMPH # 2.2 10^3/uL (1.5-5.0); LYMPH % 46.6 % (24.0-44.0); MEAN CORPUSCULAR HEMOGLOBIN 30.9 pg (27.0-33.0); MEAN CORPUSCULAR HGB CONC 32.8 g/dl (32.0-36.5); MEAN CORPUSCULAR VOLUME 94.1 fl (80.0-96.0); MONO # 0.4 10^3/uL (0.0-0.8); MONO % 7.6 % (2.0-8.0); NEUTROPHILS % 43.2 % (36.0-66.0); PLATELET COUNT, AUTOMATED 116 10^3/uL (150-450); RED BLOOD COUNT 4.24 10^6/uL (4.00-5.40); WHITE BLOOD COUNT 4.6 10^3/uL (4.0-10.0)
[2022-07-23 18:22] LABS: ALBUMIN 3.7 G/DL (3.2-5.2); ALKALINE PHOSPHATASE 81 U/L (46-116); ALT/SGPT 44 U/L (7.0-40); AST/SGOT 27 U/L (<34); BILIRUBIN,TOTAL 0.3 MG/DL (0.3-1.2); BLOOD UREA NITROGEN 16 MG/DL (9-23); CALCIUM LEVEL 8.6 MG/DL (8.5-10.1); CARBON DIOXIDE LEVEL 27 MMOL/L (20-31); CHLORIDE LEVEL 105 MMOL/L (98-107); CHOLESTEROL LEVEL 227 MG/DL (<200); CHOLESTEROL RISK RATIO 3.92 (<5); CREATININE FOR GFR 0.86 MG/DL (0.55-1.30); GLOMERULAR FILTRATION RATE > 60.0 (>51); GLUCOSE, FASTING 88 MG/DL (60-100); HDL CHOLESTEROL 57.9 MG/DL (>40); LDL CHOLESTEROL 150.5 MG/DL (<100); NON-HDL-C 169.1 MG/DL; POTASSIUM SERUM 4.7 MMOL/L (3.5-5.1); SODIUM LEVEL 139 MMOL/L (136-145); TOTAL PROTEIN 7.1 G/DL (5.7-8.2); TRIGLYCERIDES LEVEL 93 MG/DL (<150)
== END ==
LOC: M LAB REF 16:30
PROVIDERS: ATTEND Physician Assistant
DX: E78.5 Hyperlipidemia, unspecified (principal); R73.01 Impaired fasting glucose; E78.00 Pure hypercholesterolemia, unspecified

== ENCOUNTER → 2022-11-01 | Outpatient (REF) | payer OTHER ==
[2022-11-01 19:17] LABS: BASO % 0.9 % (0.0-1.0); EOS # 0.1 10^3/uL (0.0-0.5); EOS % 3.7 % (0.0-3.0); HEMOGLOBIN 12.3 g/dl (12.0-15.5); LYMPH # 1.6 10^3/uL (1.5-5.0); LYMPH % 44.9 % (24.0-44.0); MEAN CORPUSCULAR HEMOGLOBIN 30.5 pg (27.0-33.0); MEAN CORPUSCULAR HGB CONC 32.4 g/dl (32.0-36.5); MEAN CORPUSCULAR VOLUME 94.3 fl (80.0-96.0); MONO # 0.4 10^3/uL (0.0-0.8); MONO % 11.6 % (2.0-8.0); NEUTROPHILS # 1.3 10^3/uL (1.5-8.5); NEUTROPHILS % 37.2 % (36.0-66.0); PLATELET COUNT, AUTOMATED 159 10^3/uL (150-450); RED BLOOD COUNT 4.03 10^6/uL (4.00-5.40); WHITE BLOOD COUNT 3.5 10^3/uL (4.0-10.0)
[2022-11-01 19:40] LABS: ALBUMIN 3.7 G/DL (3.2-5.2); BILIRUBIN,DIRECT 0.1 MG/DL (<0.4); BILIRUBIN,TOTAL 0.5 MG/DL (0.3-1.2); CHOLESTEROL RISK RATIO 4.62 (<5); HDL CHOLESTEROL 53.2 MG/DL (>40); LDL CHOLESTEROL 178.8 MG/DL (<100); NON-HDL-C 192.8 MG/DL; TOTAL PROTEIN 7.1 G/DL (5.7-8.2)
== END ==
LOC: M LAB REF 16:29
PROVIDERS: ATTEND Physician Assistant
DX: D69.6 Thrombocytopenia, unspecified (principal); E78.5 Hyperlipidemia, unspecified

== ENCOUNTER → 2022-11-28 | Outpatient (REF) | payer OTHER ==
[2022-11-28 18:21] LABS: BASO # 0.1 10^3/uL (0.0-0.2); BASO % 1.1 % (0.0-1.0); EOS # 0.1 10^3/uL (0.0-0.5); EOS % 2.1 % (0.0-3.0); HEMATOCRIT 37.6 % (36.0-47.0); HEMOGLOBIN 12.4 g/dl (12.0-15.5); LYMPH # 2.3 10^3/uL (1.5-5.0); LYMPH % 43.6 % (24.0-44.0); MEAN CORPUSCULAR HEMOGLOBIN 30.9 pg (27.0-33.0); MEAN CORPUSCULAR VOLUME 93.8 fl (80.0-96.0); MONO # 0.6 10^3/uL (0.0-0.8); NEUTROPHILS # 2.2 10^3/uL (1.5-8.5); NEUTROPHILS % 40.8 % (36.0-66.0); PLATELET COUNT, AUTOMATED 150 10^3/uL (150-450); RED BLOOD COUNT 4.01 10^6/uL (4.00-5.40); WHITE BLOOD COUNT 5.3 10^3/uL (4.0-10.0)
[2022-11-28 18:51] LABS: FOLATE > 24.00 NG/ML (>5.4); VITAMIN B12 LEVEL 494 PG/ML (211-911)
== END ==
LOC: M LAB REF 17:57
PROVIDERS: ATTEND Nurse Practitioner Family
DX: D72.819 Decreased white blood cell count, unspecified (principal)

== ENCOUNTER → 2022-12-17 | Outpatient (CLI) | payer OTHER | LOC: M WHC 14:44 | PROVIDERS: ATTEND Nurse Practitioner Family | DX: Z12.31 Encounter for screening mammogram for malignant neoplasm of breast (principal) ==

== ENCOUNTER → 2023-05-07 | Outpatient (REF) | payer OTHER ==
[2023-05-07 19:20] LABS: ALBUMIN 3.7 G/DL (3.2-5.2); BILIRUBIN,DIRECT 0.1 MG/DL (<0.4); BILIRUBIN,TOTAL 0.3 MG/DL (0.3-1.2); CHOLESTEROL RISK RATIO 3.26 (<5); HDL CHOLESTEROL 40.4 MG/DL (>40); LDL CHOLESTEROL 65.4 MG/DL (<100); NON-HDL-C 91.6 MG/DL; TOTAL PROTEIN 6.7 G/DL (5.7-8.2)
== END ==
LOC: M LAB REF 17:34
PROVIDERS: ATTEND Physician Assistant
DX: E78.5 Hyperlipidemia, unspecified (principal)

== ENCOUNTER → 2023-05-28 | Outpatient (REF) | payer OTHER | LOC: M LAB REF 08:30 | PROVIDERS: ATTEND Physician Assistant | DX: Z01.419 Encounter for gynecological examination (general) (routine) without abnormal findings (principal) | CPT/HCPCS: 87624; G0123 ==

== ENCOUNTER → 2023-08-05 | Outpatient (REF) | payer OTHER | LOC: M LAB REF 16:44 | PROVIDERS: ATTEND Nurse Practitioner Family | DX: Z12.4 Encounter for screening for malignant neoplasm of cervix (principal); N95.2 Postmenopausal atrophic vaginitis ==

== ENCOUNTER → 2023-11-14 | Outpatient (REF) | payer OTHER ==
[2023-11-14 19:03] LABS: BASO % 0.6 % (0.0-1.0); EOS # 0.1 10^3/uL (0.0-0.5); EOS % 2.6 % (0.0-3.0); HEMATOCRIT 38.4 % (36.0-47.0); HEMOGLOBIN 12.5 g/dl (12.0-15.5); LYMPH % 42.6 % (24.0-44.0); MEAN CORPUSCULAR HEMOGLOBIN 30.4 pg (27.0-33.0); MEAN CORPUSCULAR HGB CONC 32.6 g/dl (32.0-36.5); MEAN CORPUSCULAR VOLUME 93.4 fl (80.0-96.0); MONO # 0.5 10^3/uL (0.0-0.8); MONO % 10.6 % (2.0-8.0); NEUTROPHILS % 43.4 % (36.0-66.0); PLATELET COUNT, AUTOMATED 162 10^3/uL (150-450); RED BLOOD COUNT 4.11 10^6/uL (4.00-5.40); WHITE BLOOD COUNT 4.6 10^3/uL (4.0-10.0)
[2023-11-14 19:05] LABS: HEMOGLOBIN A1c 5.3 % (4.0-6.0)
[2023-11-14 19:13] LABS: ALBUMIN 3.6 G/DL (3.2-5.2); ALKALINE PHOSPHATASE 87 U/L (46-116); ALT/SGPT 37 U/L (7.0-40); AST/SGOT 30 U/L (<34); BILIRUBIN,TOTAL 0.3 MG/DL (0.3-1.2); BLOOD UREA NITROGEN 27 MG/DL (9-23); CARBON DIOXIDE LEVEL 26 MMOL/L (20-31); CHLORIDE LEVEL 111 MMOL/L (98-107); CHOLESTEROL LEVEL 218 MG/DL (<200); CHOLESTEROL RISK RATIO 5.06 (<5); CREATININE FOR GFR 0.95 MG/DL (0.55-1.30); GLOMERULAR FILTRATION RATE > 60.0 (>51); GLUCOSE, FASTING 85 MG/DL (60-100); LDL CHOLESTEROL 150.4 MG/DL (<100); POTASSIUM SERUM 4.4 MMOL/L (3.5-5.1); SODIUM LEVEL 141 MMOL/L (136-145); TOTAL PROTEIN 7.2 G/DL (5.7-8.2); TRIGLYCERIDES LEVEL 123 MG/DL (<150)
== END ==
LOC: M LAB REF 16:33
PROVIDERS: ATTEND Physician Assistant
DX: R73.01 Impaired fasting glucose (principal); R74.01 Elevation of levels of liver transaminase levels; E78.5 Hyperlipidemia, unspecified

== ENCOUNTER → 2024-01-30 | Outpatient (CLI) | payer OTHER | LOC: M WHC 09:30 | PROVIDERS: ATTEND Nurse Practitioner Family | DX: Z12.31 Encounter for screening mammogram for malignant neoplasm of breast (principal); R92.313 Mammographic fatty tissue density, bilateral breasts ==

== ENCOUNTER → 2024-06-25 | Outpatient (REF) | payer OTHER ==
[2024-06-25 18:55] LABS: ALBUMIN 3.5 G/DL (3.2-5.2); ALKALINE PHOSPHATASE 80 U/L (35-104); ALT/SGPT 35 U/L (7.0-40); AST/SGOT 34 U/L (<34); BILIRUBIN,TOTAL 0.4 MG/DL (0.3-1.2); BLOOD UREA NITROGEN 13 MG/DL (9-23); CALCIUM LEVEL 8.9 MG/DL (8.5-10.1); CARBON DIOXIDE LEVEL 25 MMOL/L (20-31); CHLORIDE LEVEL 109 MMOL/L (98-107); CHOLESTEROL LEVEL 230 MG/DL (<200); CHOLESTEROL RISK RATIO 5.11 (<5); CREATININE FOR GFR 0.74 MG/DL (0.55-1.30); GLOMERULAR FILTRATION RATE > 90.0 (>51); GLUCOSE, FASTING 92 MG/DL (60-100); LDL CHOLESTEROL 160.2 MG/DL (<100); POTASSIUM SERUM 4.2 MMOL/L (3.5-5.1); SODIUM LEVEL 144 MMOL/L (136-145); TOTAL PROTEIN 6.9 G/DL (5.7-8.2); TRIGLYCERIDES LEVEL 124 MG/DL (<150)
== END ==
LOC: M LAB REF 17:21
PROVIDERS: ATTEND Physician Assistant
DX: E78.5 Hyperlipidemia, unspecified (principal)

== ENCOUNTER → 2025-02-17 | Outpatient (REF) | payer OTHER ==
[2025-02-17 18:08] LABS: ALT/SGPT 41.0 U/L (7.0-40); AST/SGOT 33.0 U/L (<34); CALCIUM LEVEL 9.0 MG/DL (8.3-10.6); CARBON DIOXIDE LEVEL 26.0 MMOL/L (20-31); CHLORIDE LEVEL 108.0 MMOL/L (98-107); CHOLESTEROL LEVEL 236.0 MG/DL (<200); CHOLESTEROL RISK RATIO 4.67 (<5); CREATININE FOR GFR 0.84 MG/DL (0.55-1.30); GLOMERULAR FILTRATION RATE 79.5 (>45); LDL CHOLESTEROL 163.1 MG/DL (<100); NON-HDL-C 185.5 MG/DL; POTASSIUM SERUM 4.6 MMOL/L (3.5-5.1); SODIUM LEVEL 143.0 MMOL/L (136-145); TRIGLYCERIDES LEVEL 112.0 MG/DL (<150)
== END ==
LOC: M LAB REF 17:18
PROVIDERS: ATTEND Physician Assistant
DX: E78.5 Hyperlipidemia, unspecified (principal)